=== PATIENT | female | born 1970 | race Caucasian/White ===

== ENCOUNTER 2020-06-03 13:40 | Emergency (ER) | payer OTHER ==
[~2020-06-03] VITALS: Ht 172.7 cm; Wt 81.7 kg
[2020-06-03 14:20] LABS: URINE BILIRUBIN NEGATIVE (Negative); URINE BLOOD 3+ (Negative); URINE CLARITY CLEAR; URINE COLOR YELLOW; URINE GLUCOSE-RANDOM* NEGATIVE (Negative); URINE KETONES TRACE (Negative); URINE NITRITE-REFLEX NEGATIVE (Negative); URINE PROTEIN (DIPSTICK) NEGATIVE (Negative); URINE UROBILINOGEN 0.2 E.U./dl (0.2-1.0)
[2020-06-03 14:21] LABS: URINE LEUKOCYTES-REFLEX 2+ (Negative)
[2020-06-03 14:29] LABS: AMP/METHAMP Negative (Negative); BARBITURATES Negative (Negative); BENZODIAZEPINES POSITIVE (Negative); COCAINE POSITIVE (Negative); METHADONE Negative (Negative); OPIATES Negative (Negative); PCP Negative (Negative)
[2020-06-03 14:52] LABS: CASTS None Seen /LPF (None Seen); CRYSTALS None Seen /LPF (None Seen); SQUAMOUS 4-10 Moderate /LPF (0-3)
[2020-06-03 14:54] LABS: URINE RBC 3-10 Few /HPF (0-2)
[2020-06-03 16:21] LABS: EOSINOPHILS 0.4 % (0.0-3.0); RDW 16.8 % (10.5-14.5)
[2020-06-03 16:23] LABS: ABSOLUTE NEUTROPHILS 11.8 thou/uL (1.4-8.2); BASOPHILS 0.5 % (0.0-2.0); HEMATOCRIT 41.4 % (37.0-47.0); HEMOGLOBIN 13.8 gm/dL (12.0-15.0); LYMPHOCYTES 11.1 % (24.0-44.0); MCH 28.1 pg (26.0-34.0); MCHC 33.2 g/dL (28.0-37.0); MCV 84.6 fL (80.0-100.0); MONOCYTES 4.6 % (1.0-8.0); POLYS 83.4 % (36.0-66.0); RBC 4.89 mil/uL (4.20-5.00); WBC 17.2 thou/uL (4.0-11.0)
[2020-06-03 17:01] LABS: ANION GAP 15 mmol/L (7-16); BUN 13 mg/dL (7-18); CALCIUM 9.2 mg/dL (8.5-10.1); CHLORIDE 101 mmol/L (98-107); CO2 21 mmol/L (21-32); CREATININE 1.2 mg/dL (0.6-1.0); GLUCOSE 138 mg/dL (74-106); POTASSIUM 4.4 mmol/L (3.5-5.1); SODIUM 137 mmol/L (136-145)
[2020-06-03 17:07] LABS: ALBUMIN 3.7 g/dL (3.4-5.0); SALICYLATE 4.7 mg/dL (2.8-20.0); SGOT 34 U/L (15-37); SGPT 37 U/L (30-65); TOTAL BILIRUBIN 0.3 mg/dL (0.2-1.0); TOTAL PROTEIN 7.8 g/dL (6.4-8.2)
[2020-06-03 17:10] LABS: PLATELET COUNT 374 thou/uL (150-400)
--- NOTE | 2020-06-04 11:36 | EKG ---
[facility] [place] [address] ELECTROCARDIOGRAM REPORT Name: TANESHA SOUZA Room #: [facility]#: [id number] Admission: 06/03/20 Attend Phys: Discharge: Date of : 70 Report #: [id number] THIS REPORT FOR: cc: Paula Sidhu Nancy ANP Couchonnal, Luis F. MD ~ THIS REPORT FOR: //name// [facility] ED Test Date: 2020-06-03 Test Time: 14:41:02 Pat Name: TANESHA SOUZA Department: Room: Gender: Sexton Helper: : 1970 Requested By: Jordi Hernández Order Number: [id number] : Prashant Charles Measurements [address] Rate: 74 P: 51 NE: 162 QRS: -31 QRSD: 97 T: 25 QT: 393 QTc: 436 Interpretive Statements Sinus rhythm Left axis deviation Abnormal R-wave progression, early transition No previous ECG available for comparison Electronically Signed On 06-04-2020 11:36:34 CDT by Prashant Charles [email or web address] <ELECTRONICALLY SIGNED> By: Prashant Charles MD 06/04/20 1136 144 144 Prashant Charles MD /TYSHAWN
[2020-06-04] MEDS ORDERED: PRINIVIL10 MG PO (12:34)
[2020-06-04] MEDS ORDERED: PAXIL 20 MG TAB20 M1 PO (12:34)
[2020-06-04] MEDS ORDERED: TRAZODONE HCL100 MG PO (12:34)
[2020-06-04] MEDS ORDERED: WELLBUTRIN SR150 M1 PO (12:34)
[2020-06-04] MEDS ORDERED: HYDROXYZINE HCL25 M2 PO (12:47)
[2020-06-04 12:58] VITALS: BP 123/62
== END 2020-06-04 13:00 ==
LOC: ER 13:40
PROVIDERS: Physician Assistant
DX: F14.10 Cocaine abuse, uncomplicated (principal); L03.113 Cellulitis of right upper limb; R45.851 Suicidal ideations; N39.0 Urinary tract infection, site not specified; F12.90 Cannabis use, unspecified, uncomplicated; Z79.899 Other long term (current) drug therapy; Z91.041 Radiographic dye allergy status